=== PATIENT | female | born 1980 | race Hispanic/Latino ===

== ENCOUNTER 2017-07-04 13:23 | Day surgery (SDC) | payer OTHER ==
[~2017-07-04] VITALS: Ht 157.5 cm; Wt 82.0 kg
[~2017-07-04 13:23] MED LIST: TIROSINT88 MCG PO; VITAMIN D2000 UNI1 PO
[2017-07-04 14:19] VITALS: BP 109/57
[2017-07-04] MEDS ORDERED: NORCO 5/3251 TABLET PO (16:49)
[2017-07-04 18:12] VITALS: BP 110/56
[2017-07-04 19:10] VITALS: BP 108/57
[2017-07-04 20:14] VITALS: BP 124/60
[2017-07-06 09:15] LABS: INTERNAL CONTROL VALID? YES
== END 2017-07-04 20:20 | disposition home or self-care (01) ==
LOC: SDC 13:23
PROVIDERS: Surgery
PROC: 0HBU0ZX Excision of Left Breast, Open Approach, Diagnostic (ICD-10-PCS; principal; 2017-07-04)
DX: D24.2 Benign neoplasm of left breast (principal); E03.9 Hypothyroidism, unspecified
CPT/HCPCS: 84703; 88305; J0690; J1100; J1170; J2250; J2405; J2765; J3010; S0020